=== PATIENT | female | born 1940 | race African-American/Black ===

== ENCOUNTER 2017-05-08 10:13 | Emergency (ER) | payer OTHER ==
[~2017-05-08] VITALS: Ht 175.3 cm; Wt 73.0 kg
[2017-05-08] MEDS ORDERED: KETOROLAC 60MG/2ML VIAL IM ONE (10:45)
[2017-05-08 13:03] VITALS: BP 161/78
== END 2017-05-08 13:35 | disposition home or self-care (01) ==
LOC: ER 10:13
DX: M17.11 Unilateral primary osteoarthritis, right knee (principal); I10 Essential (primary) hypertension; Z87.891 Personal history of nicotine dependence
CPT/HCPCS: 73562; 96372; 99284; J1885

== ENCOUNTER 2018-06-22 07:00 | Emergency (ER) | payer OTHER ==
[~2018-06-22] VITALS: Ht 177.8 cm; Wt 72.0 kg
[2018-06-22] MEDS ORDERED: CLON1PAT10 TD (07:41)
[2018-06-22] MEDS ORDERED: AMLO5TAB88 PO (07:41)
[2018-06-22] MEDS ORDERED: HYDR-4133 PO (07:41)
[2018-06-22] MEDS ORDERED: CLONIDINE 0.1MG TABLET PO ONE (08:00)
[2018-06-22] MEDS ORDERED: AMLODIPINE 5MG TABLET PO ONE (08:00)
[2018-06-22] MEDS ORDERED: LISINOPRIL 40MG TABLET PO ONE (08:30)
[2018-06-22] MEDS ORDERED: ATENOLOL 25MG TABLET PO ONE (08:30)
[2018-06-22] MEDS ORDERED: HYDRALAZINE HCL 100MG TABLET PO ONE (08:30)
[2018-06-22] MEDS ORDERED: AMLODIPINE 10MG TABLET PO ONE (08:30)
[2018-06-22] MEDS ORDERED: CLONIDINE 0.2MG TABLET PO ONE (08:30)
[2018-06-22 08:51] LABS: BASOPHILS % 0.6 % (0.0-2.0); EOSINOPHILS % 0.8 % (0.0-5.0); HEMATOCRIT. 37.5 % (42.0-52.0); HEMOGLOBIN. 12.2 g/dL (14.0-18.0); LYMPHOCYTES % 21.4 % (20.0-50.0); MEAN CORPUSCULAR HEMOGLOBIN 28.5 pg (28.0-32.0); MEAN CORPUSCULAR VOLUME 87.5 fL (80.0-94.0); MONOCYTES % 12.7 % (2.0-8.0); NEUTROPHILS % 64.5 % (40.0-76.0); PLATELET 130 x1000/uL (130-400); RED BLOOD CELL COUNT 4.28 mill/uL (4.7-6.1); RED CELL DISTRIBUTION WIDTH 15.3 % (11.6-14.6)
[2018-06-22 08:58] LABS: CHLORIDE 105 mEq/L (98-107)
[2018-06-22 09:00] LABS: INR 1.1; PARTIAL THROMBOPLASTIN TIME 28.8 sec (23.4-31.0); PROTHROMBIN TIME 11.1 sec (9.1-11.1)
[2018-06-22 12:00] VITALS: BP 153/64
== END 2018-06-22 13:25 | disposition home or self-care (01) ==
LOC: ER 07:00 → EDSEX 07:00 → ER 13:25
DX: R42 Dizziness and giddiness (principal); I16.0 Hypertensive urgency; R51 Headache; E11.9 Type 2 diabetes mellitus without complications; I10 Essential (primary) hypertension; H26.9 Unspecified cataract
CPT/HCPCS: 36415; 70450; 71045; 80048; 84484; 85025; 85610; 85730; 93005; 99285

== ENCOUNTER 2018-12-29 23:11 | Emergency (ER) | payer OTHER ==
[~2018-12-29] VITALS: Ht 177.8 cm; Wt 74.0 kg
[~2018-12-29 23:11] MED LIST: AMLO5TAB88 PO; CLON1PAT10 TD; HYDR-4133 PO
[2018-12-30 00:04] VITALS: BP 234/85
[2018-12-30] MEDS ORDERED: CLONIDINE 0.2MG TABLET PO ONE (01:15)
== END 2018-12-30 01:40 | disposition left against medical advice (07) ==
LOC: ER 23:11
DX: I10 Essential (primary) hypertension (principal); E11.9 Type 2 diabetes mellitus without complications; Z79.899 Other long term (current) drug therapy
CPT/HCPCS: 99282

== ENCOUNTER 2019-04-16 18:30 | Emergency (ER) | payer OTHER ==
[~2019-04-16] VITALS: Ht 175.3 cm; Wt 73.0 kg
[2019-04-16] MEDS ORDERED: AMLODIPINE 5MG TABLET PO ONE ×2 (20:30→20:45)
[2019-04-16] MEDS ORDERED: ONDANSETRON HCL 4MG/2ML INJ IV ONE (20:45)
[2019-04-16] MEDS ORDERED: HYDRALAZINE HCL 100MG TABLET PO ONE (20:45)
[2019-04-16] MEDS ORDERED: ONDANSETRON 4MG ODT PO ONE (20:45)
[2019-04-16] MEDS ORDERED: CLONIDINE 0.1MG TABLET PO ONE (20:45)
[2019-04-16 20:49] LABS: HEMATOCRIT. 39.3 % (42.0-52.0); HEMOGLOBIN. 13.2 g/dL (14.0-18.0); MEAN CORPUSCULAR HEMOGLOBIN 29.4 pg (28.0-32.0); MEAN CORPUSCULAR VOLUME 87.6 fL (80.0-94.0); MEAN PLATELET VOLUME 8.5 fl (7.4-10.4); PLATELET 132 x1000/uL (130-400); RED BLOOD CELL COUNT 4.49 mill/uL (4.7-6.1); RED CELL DISTRIBUTION WIDTH 14.9 % (11.6-14.6)
[2019-04-16 20:52] LABS: CHLORIDE 103 mEq/L (98-107)
[2019-04-16 21:02] LABS: PLATELET ESTIMATE NORMAL
[2019-04-16] MEDS ORDERED: LISINOPRIL 40MG TABLET PO ONE (22:00)
[2019-04-16 22:25] VITALS: BP 196/79
== END 2019-04-16 22:30 | disposition home or self-care (01) ==
LOC: ER 18:30
DX: I16.0 Hypertensive urgency (principal); I10 Essential (primary) hypertension; E11.9 Type 2 diabetes mellitus without complications; Z79.899 Other long term (current) drug therapy
CPT/HCPCS: 36415; 80053; 85025; 93005; 96374; 99284; J2405

== ENCOUNTER 2019-08-05 09:21 | Inpatient (IN) | payer OTHER ==
[~2019-08-05] VITALS: Ht 172.7 cm; Wt 69.4 kg
[2019-08-05] MEDS ORDERED: HYDRALAZINE 20MG/ML VIAL IV ONE ×2 (10:15→14:15)
[2019-08-05 10:47] LABS: BASOPHILS % 0.6 % (0.0-2.0); HEMATOCRIT. 43.8 % (42.0-52.0); HEMOGLOBIN. 14.4 g/dL (14.0-18.0); LYMPHOCYTES % 22.9 % (20.0-50.0); MEAN CORPUSCULAR HEMOGLOBIN 28.6 pg (28.0-32.0); MEAN CORPUSCULAR VOLUME 86.9 fL (80.0-94.0); MEAN PLATELET VOLUME 9.1 fl (7.4-10.4); MONOCYTES % 12.8 % (2.0-8.0); NEUTROPHILS % 62.7 % (40.0-76.0); PLATELET 139 x1000/uL (130-400); RED BLOOD CELL COUNT 5.04 mill/uL (4.7-6.1); RED CELL DISTRIBUTION WIDTH 14.8 % (11.6-14.6)
[2019-08-05 10:50] LABS: CHLORIDE 103 mEq/L (98-107)
[2019-08-05 10:52] LABS: CLARITY URINE CLEAR (CLEAR); COLOR URINE YELLOW (YELLOW); KETONES URINE NEGATIVE (NEGATIVE); LEUKOCYTE ESTERASE URINE NEGATIVE (NEGATIVE); NITRITE URINE NEGATIVE (NEGATIVE); OCCULT BLOOD URINE NEGATIVE (NEGATIVE); PARTIAL THROMBOPLASTIN TIME 30.5 sec (23.4-31.0); PH URINE 6.5 (4.5-8.0); PROTEIN URINE NEGATIVE (NEGATIVE); PROTHROMBIN TIME 10.7 sec (9.6-11.0); SPECIFIC GRAVITY URINE 1.007 (1.005-1.030); UROBILINOGEN URINE 0.2 E.U./dL (0.2-1.0)
[2019-08-05 11:09] LABS: *AMPHETAMINES SCREEN URINE NEGATIVE (NEGATIVE); *BARBITURATES SCREEN URINE NEGATIVE (NEGATIVE); *BENZODIAZEPINES SCREEN URINE NEGATIVE (NEGATIVE); *COCAINE SCREEN URINE NEGATIVE (NEGATIVE)
[2019-08-05 11:10] LABS: CANNABINOID URINE SCREEN NEGATIVE (NEGATIVE); METHADONE URINE SCREEN NEGATIVE (NEGATIVE); OPIATES URINE SCREEN NEGATIVE (NEGATIVE); PHENCYCLIDINE URINE SCREEN NEGATIVE (NEGATIVE)
[2019-08-05] MEDS ORDERED: ASPIRIN 325MG EC TABLET PO ONE (12:30)
[2019-08-05] MEDS ORDERED: LABETALOL 5MG/ML SYR 20 MG/4 ML SYRINGE IV ONE (14:30)
[2019-08-05] MEDS ORDERED: LABETALOL HCL 20MG/4ML CARPUJECT IV ONE (15:15)
[2019-08-05] MEDS ORDERED: LABETALOL 5MG/ML SYR 20 MG/4 ML SYRINGE IV NR (15:30)
[2019-08-05] MEDS ORDERED: LORAZEPAM 2MG/ML CPJ IV PRN (18:00)
[2019-08-05] MEDS ORDERED: ONDANSETRON HCL 4MG/2ML INJ IV PRN (18:00)
[2019-08-05] MEDS ORDERED: DIPHENHYDRAMINE 50MG/ML VIAL IV PRN (18:00)
[2019-08-05] MEDS ORDERED: ENOXAPARIN 40MG/0.4ML SYR SUBCUT SCH (18:00)
[2019-08-05] MEDS ORDERED: NA PHOS,M-B/NA PHOS,DI-BA ENEMA 118ML PR PRN (18:00)
[2019-08-05] MEDS ORDERED: DOCUSATE SODIUM 100MG CAPSULE PO PRN (18:00)
[2019-08-05] MEDS ORDERED: MAGNESIUM/ALUMINUM HYDROXIDE/SIMETHICONE 30ML UDC PO PRN (18:00)
[2019-08-05] MEDS ORDERED: IPRATROPIUM/ALBUTEROL 0.5-3(2.5)MG/3ML NEB NEB PRN (18:00)
[2019-08-05] MEDS ORDERED: HYDROCODONE/ACETAMINOPHEN 5/325MG TABLET PO PRN (18:00)
[2019-08-05] MEDS ORDERED: GUAIFENESIN 200MG/10ML SUGAR FREE UDC PO PRN (18:00)
[2019-08-05] MEDS ORDERED: MORPHINE SULFATE 2 MG/ML CPJ (NOT FOR IM USE) IV PRN (18:00)
[2019-08-05 19:30] VITALS: BP 181/86
[2019-08-05 20:00] VITALS: BP 186/80
[2019-08-05] MEDS: LISINOPRIL 20MG TABLET PO SCH (21:21)
[2019-08-05] MEDS: ACETAMINOPHEN 325MG TABLET PO PRN (21:21)
[2019-08-05 22:00] VITALS: BP 160/84
[2019-08-05] MEDS ORDERED: METF-816 MT (23:22)
[2019-08-06] VITALS (12 sets, daily range): BP systolic 131–189; BP diastolic 62–98
[2019-08-06 00:52] LABS: CHLORIDE 102 mEq/L (98-107)
[2019-08-06] MEDS: ACETAMINOPHEN 325MG TABLET PO PRN ×2 (06:20→22:05)
[2019-08-06 07:49] LABS: CHLORIDE 103 mEq/L (98-107)
[2019-08-06 07:57] LABS: HDL CHOLESTEROL 44 mg/dL (40-59); LDL CHOLESTEROL 89 mg/dL (5-100)
[2019-08-06 07:59] LABS: HEMATOCRIT. 36.6 % (42.0-52.0); MEAN CORPUSCULAR HEMOGLOBIN 28.3 pg (28.0-32.0); MEAN CORPUSCULAR VOLUME 86.2 fL (80.0-94.0); MEAN PLATELET VOLUME 9.3 fl (7.4-10.4); PLATELET 124 x1000/uL (130-400); RED BLOOD CELL COUNT 4.25 mill/uL (4.7-6.1); RED CELL DISTRIBUTION WIDTH 15.2 % (11.6-14.6)
[2019-08-06 08:00] LABS: T4 FREE 1.31 ng/dL (0.76-1.46)
[2019-08-06] MEDS: LISINOPRIL 20MG TABLET PO SCH (08:37)
[2019-08-06] MEDS: ASPIRIN 81MG EC TABLET PO SCH (08:37)
[2019-08-06] MEDS: AMLODIPINE 10MG TABLET PO SCH (08:37)
[2019-08-06] MEDS: METOPROLOL TARTRATE 25MG TABLET PO SCH ×2 (09:00→17:00)
[2019-08-06 09:47] LABS: ATYPICAL LYMPHOCYTES 1; PLATELET ESTIMATE NORMAL
[2019-08-06 10:53] LABS: T4 FREE 1.31 ng/dL (0.76-1.46)
[2019-08-06] MEDS: CLONIDINE 0.1MG TABLET PO PRN (12:43)
[2019-08-06] MEDS ORDERED: DEXTROSE 50% WATER 50ML SYRINGE IV PRN (14:45)
[2019-08-06] MEDS: HYDRALAZINE HCL 25MG TABLET PO SCH ×2 (14:55→22:04)
[2019-08-06] MEDS: BLOOD SUGAR DIAGNOSTIC STRIP TEST SCH ×2 (16:59→21:00)
[2019-08-06] MEDS: INSULIN LISPRO 100 UNITS/ML SUBCUT SCH ×2 (17:53→21:00)
[2019-08-06] MEDS ORDERED: ATORVASTATIN CALCIUM 20MG TABLET PO SCH (21:00)
[2019-08-07] VITALS (9 sets, daily range): BP systolic 141–202; BP diastolic 72–94
[2019-08-07] MEDS: CLONIDINE 0.1MG TABLET PO PRN (00:11)
[2019-08-07] MEDS: HYDRALAZINE HCL 25MG TABLET PO SCH (05:29)
[2019-08-07] MEDS: BLOOD SUGAR DIAGNOSTIC STRIP TEST SCH ×2 (07:30→12:30)
[2019-08-07] MEDS ORDERED: METFORMIN HCL 500MG TABLET PO SCH (09:00)
[2019-08-07] MEDS: INSULIN LISPRO 100 UNITS/ML SUBCUT SCH ×2 (09:24→14:03)
[2019-08-07] MEDS: METOPROLOL TARTRATE 25MG TABLET PO SCH (09:28)
[2019-08-07] MEDS: LISINOPRIL 20MG TABLET PO SCH (09:29)
[2019-08-07] MEDS: ASPIRIN 81MG EC TABLET PO SCH (09:29)
[2019-08-07] MEDS: AMLODIPINE 10MG TABLET PO SCH (09:29)
[2019-08-07] MEDS: CLONIDINE 0.1MG TABLET PO SCH ×2 (09:42→13:55)
[2019-08-07] MEDS: ACETAMINOPHEN 325MG TABLET PO PRN (13:28)
[2019-08-07] MEDS ORDERED: HYDRALAZINE HCL 100MG TABLET PO SCH (14:00)
== END 2019-08-07 16:00 | disposition left against medical advice (07) | DRG 78 ==
LOC: ER 09:21 → 5EST 15:14 → ENRESERV 15:32 → CANRESERV 16:49 → ENRESERV 17:53 → 5EST 20:27
PROVIDERS: ADMIT Internal Medicine; ATTEND Internal Medicine
DX: I67.4 Hypertensive encephalopathy (principal); G45.9 Transient cerebral ischemic attack, unspecified; I10 Essential (primary) hypertension; I25.10 Atherosclerotic heart disease of native coronary artery without angina pectoris; R53.1 Weakness; F41.9 Anxiety disorder, unspecified; E11.9 Type 2 diabetes mellitus without complications; Z87.891 Personal history of nicotine dependence; I69.30 Unspecified sequelae of cerebral infarction
CPT/HCPCS: 36415; 70551; 71045; 80048; 80061; 80305; 81003; 82962; 83036; 83880; 84439; 84443; 84484; 85379; 93005; 93306; 99285; J0360; J1815; J3490

== ENCOUNTER 2019-08-13 12:28 | Emergency (ER) | payer OTHER ==
[~2019-08-13] VITALS: Ht 172.7 cm; Wt 65.0 kg
[~2019-08-13 12:28] MED LIST changes: +METF-816 MT
[2019-08-13 14:03] LABS: BASOPHILS % 0.5 % (0.0-2.0); EOSINOPHILS % 0.1 % (0.0-5.0); HEMOGLOBIN. 10.7 g/dL (14.0-18.0); LYMPHOCYTES % 8.7 % (20.0-50.0); MEAN CORPUSCULAR HEMOGLOBIN 28.7 pg (28.0-32.0); MEAN CORPUSCULAR VOLUME 85.9 fL (80.0-94.0); MEAN PLATELET VOLUME 8.1 fl (7.4-10.4); MONOCYTES % 12.5 % (2.0-8.0); NEUTROPHILS % 78.2 % (40.0-76.0); PLATELET 170 x1000/uL (130-400); RED BLOOD CELL COUNT 3.72 mill/uL (4.7-6.1); RED CELL DISTRIBUTION WIDTH 14.4 % (11.6-14.6)
[2019-08-13 14:10] LABS: CHLORIDE 92 mEq/L (98-107)
[2019-08-13 14:21] LABS: CLARITY URINE TURBID (CLEAR); COLOR URINE ORANGE (YELLOW); KETONES URINE 2+ (NEGATIVE); LEUKOCYTE ESTERASE URINE 3+ (NEGATIVE); NITRITE URINE POSITIVE (NEGATIVE); OCCULT BLOOD URINE 1+ (NEGATIVE); PH URINE 5.5 (4.5-8.0); PROTEIN URINE 3+ (NEGATIVE); SPECIFIC GRAVITY URINE 1.024 (1.005-1.030)
[2019-08-13] MEDS ORDERED: SODIUM CHLORIDE 0.9% 1,000 ML IV ONE (14:46)
[2019-08-13] MEDS ORDERED: CEFTRIAXONE 1,000 MG in DEXTROSE 5% WATER 50 ML IV STA (14:56)
[2019-08-13] MEDS ORDERED: CEFTRIAXONE 1 G PREMIX 50 ML IV ONE (15:00)
[2019-08-13] MEDS ORDERED: CLONIDINE 0.1MG TABLET PO ONE (16:45)
[2019-08-13] MEDS ORDERED: HYDRALAZINE HCL 25MG TABLET PO ONE (17:30)
[2019-08-13 17:52] VITALS: BP 203/96
== END 2019-08-13 17:55 | disposition home or self-care (01) ==
LOC: ER 14:37
DX: T83.038A Leakage of other urinary catheter, initial encounter (principal); N39.0 Urinary tract infection, site not specified; I10 Essential (primary) hypertension; E87.1 Hypo-osmolality and hyponatremia; D64.9 Anemia, unspecified; E11.9 Type 2 diabetes mellitus without complications; Z79.84 Long term (current) use of oral hypoglycemic drugs; Z79.899 Other long term (current) drug therapy; Z86.73 Personal history of transient ischemic attack (TIA), and cerebral infarction without residual deficits
CPT/HCPCS: 36415; 70450; 71045; 80053; 81003; 85025; 87077; 87086; 87186; 93005; 96365; 99284; J0696; J7030; J7060

== ENCOUNTER 2021-11-29 07:44 | Emergency (ER) | payer OTHER ==
[~2021-11-29] VITALS: Ht 175.3 cm; Wt 71.0 kg
[~2021-11-29 07:44] MED LIST changes: -METF-816 MT; +METF-874 MT
[2021-11-29] MEDS ORDERED: SODIUM CHLORIDE 0.9% 1,000 ML IV ONE (08:00)
[2021-11-29 08:20] LABS: BASOPHILS % 0.5 % (0.0-2.0); EOSINOPHILS % 0.1 % (0.0-5.0); HEMATOCRIT. 36.7 % (42.0-52.0); HEMOGLOBIN. 12.1 g/dL (14.0-18.0); LYMPHOCYTES % 10.1 % (20.0-50.0); MEAN CORPUSCULAR HEMOGLOBIN 28.1 pg (28.0-32.0); MEAN CORPUSCULAR VOLUME 85.3 fL (80.0-94.0); MEAN PLATELET VOLUME 8.9 fl (7.4-10.4); MONOCYTES % 9.9 % (2.0-8.0); NEUTROPHILS % 79.4 % (40.0-76.0); PLATELET 174 x1000/uL (130-400); RED CELL DISTRIBUTION WIDTH 15.5 % (11.6-14.6)
[2021-11-29 08:25] LABS: CHLORIDE 101 mEq/L (98-107)
[2021-11-29] MEDS ORDERED: MAGNESIUM 1 G PREMIX 100 ML IV ONE (09:15)
[2021-11-29] MEDS ORDERED: ONDANSETRON HCL 4MG/2ML INJ IV ONE (09:15)
[2021-11-29] MEDS ORDERED: METHYLPREDNISOLONE SOD SUCC 125 MG/2 ML VIAL IV ONE (09:15)
[2021-11-29] MEDS ORDERED: IPRATROPIUM/ALBUTEROL 0.5-3(2.5)MG/3ML NEB HHN ONE (10:00)
[2021-11-29 11:21] VITALS: BP 136/62
== END 2021-11-29 11:43 | disposition short-term general hospital (02) ==
LOC: ER 07:46
DX: J96.01 Acute respiratory failure with hypoxia (principal); R53.1 Weakness; E11.9 Type 2 diabetes mellitus without complications; I11.0 Hypertensive heart disease with heart failure; I50.9 Heart failure, unspecified; Z20.822 Contact with and (suspected) exposure to COVID-19; Z86.73 Personal history of transient ischemic attack (TIA), and cerebral infarction without residual deficits; Z87.891 Personal history of nicotine dependence; Z79.84 Long term (current) use of oral hypoglycemic drugs
CPT/HCPCS: 36415; 71045; 80053; 82962; 83880; 85025; 87426; 94640; 96374; 96375; 99291; J2405; J2930; J3475; J7030

== ENCOUNTER 2023-04-23 18:15 | Emergency (ER) | payer OTHER ==
[~2023-04-23] VITALS: Ht 172.7 cm; Wt 80.0 kg
[2023-04-23 18:17] VITALS: O2SAT 98
[2023-04-23 21:15] VITALS: TEMP 98
[2023-04-24 01:25] VITALS: BP 150/81; PULSE 89; RESP 16
== END 2023-04-24 01:42 | disposition home or self-care (01) ==
LOC: ER 18:15
DX: R33.9 Retention of urine, unspecified (principal); E11.9 Type 2 diabetes mellitus without complications; I10 Essential (primary) hypertension; Z86.73 Personal history of transient ischemic attack (TIA), and cerebral infarction without residual deficits
CPT/HCPCS: 51702; 99284

== ENCOUNTER 2023-04-25 12:53 | Emergency (ER) | payer OTHER ==
[~2023-04-25] VITALS: Ht 172.7 cm; Wt 73.0 kg
[2023-04-25 12:55] VITALS: O2SAT 99
[2023-04-25 16:59] LABS: HEMATOCRIT. 38.2 % (42.0-52.0); HEMOGLOBIN. 12.7 g/dL (14.0-18.0); MEAN CORPUSCULAR HEMOGLOBIN 28.5 pg (28.0-32.0); MEAN CORPUSCULAR VOLUME 85.9 fL (80.0-94.0); MEAN PLATELET VOLUME 6.9 fl (7.4-10.4); PLATELET 222 x1000/uL (130-400); RED BLOOD CELL COUNT 4.45 mill/uL (4.7-6.1); RED CELL DISTRIBUTION WIDTH 14.3 % (11.6-14.6)
[2023-04-25 17:30] LABS: PLATELET ESTIMATE NORMAL
[2023-04-25 17:48] LABS: COLOR URINE RED (YELLOW); KETONES URINE NEGATIVE (NEGATIVE); LEUKOCYTE ESTERASE URINE 1+ (NEGATIVE); NITRITE URINE NEGATIVE (NEGATIVE); OCCULT BLOOD URINE 3+ (NEGATIVE); PH URINE 5.5 (4.5-8.0); PROTEIN URINE 3+ (NEGATIVE); SPECIFIC GRAVITY URINE 1.012 (1.005-1.030); UROBILINOGEN URINE 0.2 E.U./dL (0.2-1.0)
[2023-04-25 18:08] LABS: CLARITY URINE CLOUDY (CLEAR)
[2023-04-25] MEDS ORDERED: CEFTRIAXONE 1GM PREMIX 50 ML IV ONE (19:00)
[2023-04-25] MEDS ORDERED: LABETALOL HCL VIAL 20 MG/4 ML VIAL IV ONE (20:45)
[2023-04-25] MEDS ORDERED: LABETALOL 5MG/ML SYR 20 MG/4 ML SYRINGE IV NR ×2 (20:45→21:15)
[2023-04-25 20:49] VITALS: PULSE 96; RESP 12; TEMP 98.8
[2023-04-25 20:54] VITALS: BP 173/91
[2023-04-25] MEDS ORDERED: LABETALOL HCL VIAL 20 MG/4 ML VIAL IV STA (20:58)
== END 2023-04-25 21:09 | disposition short-term general hospital (02) ==
LOC: ER 13:44 → CANBEDREQ 04-26 00:26
DX: T83.091A Other mechanical complication of indwelling urethral catheter, initial encounter (principal); R31.0 Gross hematuria; E11.9 Type 2 diabetes mellitus without complications; I10 Essential (primary) hypertension; Z86.73 Personal history of transient ischemic attack (TIA), and cerebral infarction without residual deficits; X58.XXXA Exposure to other specified factors, initial encounter
CPT/HCPCS: 99284; 96365; 96366; 96375; 80048; 81003; 87106; 85025; 87086; 36415; J0696; J3490; C1893; A4315

== ENCOUNTER 2023-12-12 12:46 | Emergency (ER) | payer OTHER ==
[~2023-12-12] VITALS: Ht 177.8 cm; Wt 80.0 kg
[2023-12-12 13:20] VITALS: O2SAT 96
[2023-12-12 18:07] LABS: CLARITY URINE TURBID (CLEAR); COLOR URINE RED (YELLOW); GLUCOSE URINE 3+ (NEGATIVE); KETONES URINE NEGATIVE (NEGATIVE); LEUKOCYTE ESTERASE URINE 2+ (NEGATIVE); NITRITE URINE NEGATIVE (NEGATIVE); OCCULT BLOOD URINE 3+ (NEGATIVE); PH URINE 5.5 (4.5-8.0); PROTEIN URINE 3+ (NEGATIVE); SPECIFIC GRAVITY URINE 1.026 (1.005-1.030); UROBILINOGEN URINE 0.2 E.U./dL (0.2-1.0)
[2023-12-12 19:01] LABS: RBC URINE 25-50 /hpf (0-2); SQUAMOUS EPITHELIAL CELL URINE NONE SEEN /lpf (RARE/1+); WBC URINE TNTC /hpf (0-2)
[2023-12-12 19:02] LABS: BACTERIA URINE 1+; YEAST URINE NONE SEEN
[2023-12-12 19:29] VITALS: TEMP 97.8
[2023-12-12] MEDS ORDERED: CEFP100T8 MT (20:24)
[2023-12-12] MEDS ORDERED: LIDOCAINE HCL/PF 1% 2ML VIAL INFIL NR (20:30)
[2023-12-12] MEDS ORDERED: LIDOCAINE HCL 1% 10 MG/ML 5ML VIAL IJ NR (20:30)
[2023-12-12] MEDS: CEFTRIAXONE SODIUM 1G VIAL IM NR (21:03)
[2023-12-12] MEDS: LIDOCAINE HCL 1% 10 MG/ML 10ML VIAL INJ NR (21:03)
[2023-12-12 22:45] VITALS: BP 165/84; PULSE 83; RESP 16
== END 2023-12-12 22:46 | disposition home or self-care (01) ==
LOC: ER 12:46
DX: T83.091A Other mechanical complication of indwelling urethral catheter, initial encounter (principal); N39.0 Urinary tract infection, site not specified; E11.9 Type 2 diabetes mellitus without complications; I10 Essential (primary) hypertension; Z86.73 Personal history of transient ischemic attack (TIA), and cerebral infarction without residual deficits; X58.XXXA Exposure to other specified factors, initial encounter; Y93.89 Activity, other specified; Y92.89 Other specified places as the place of occurrence of the external cause; Y99.8 Other external cause status
CPT/HCPCS: 99285; 74176; 81003; 87086; 96372; J0696; J3490